=== PATIENT | female | born 1985 | race American Indian/Alaskan Native ===

== ENCOUNTER 2017-10-26 15:37 | Outpatient (CLI) | payer OTHER ==
[2017-10-26] MEDS ORDERED: LACTATED RINGERS 500 ML IV ONE (16:10)
[2017-10-26 17:03] VITALS: BP 98/61
--- NOTE | 2017-10-27 10:00 | Ultrasound Report ---
ULTRASOUND OB LIMITED History: Premature rupture of membranes Technique: Transabdominal ultrasound with Doppler interrogation. Gestation: Single Position: Cephalic Amniotic Fluid: Normal ANNA = 18.7 cm Heart Rate: 140 BPM
== END 2017-10-26 18:14 | disposition home or self-care (01) ==
LOC: TRG 15:37
PROVIDERS: ATTEND Obstetrics & Gynecology
DX: O47.02 False labor before 37 completed weeks of gestation, second trimester (principal); Z3A.27 27 weeks gestation of pregnancy
CPT/HCPCS: 59025; 76815

== ENCOUNTER 2017-12-13 21:52 | Outpatient (CLI) | payer OTHER ==
[2017-12-14 00:53] VITALS: BP 128/78
== END 2017-12-14 01:00 | disposition other institution (70) ==
LOC: TRG 21:52
PROVIDERS: ATTEND Obstetrics & Gynecology
DX: O26.893 Other specified pregnancy related conditions, third trimester (principal); R00.2 Palpitations; Z3A.33 33 weeks gestation of pregnancy
CPT/HCPCS: 59025

== ENCOUNTER 2017-12-14 01:19 | Emergency (ER) | payer OTHER ==
[2017-12-14 02:09] VITALS: BP 112/77
--- NOTE | 2017-12-14 03:06 | Emergency Department Report ---
ED General Adult HPI - General Chief complaint: Arrhythmia/Palpitations Stated complaint: ACCLERATED HEART BEAT Time Seen by Provider: 12/14/17 03:00 Source: patient Mode of arrival: Ambulatory Limitations: No Limitations - History of Present Illness Initial comments: 33 week G2, female, is referred to the emergency room for evaluation of palpitations, after being evaluated and labeled and delivery for several hours for monitoring. monitoring was normal, but patient's primary concern was that she had been having a sensation of palpable heartbeat, which felt like it was going fast. This was her initial presentation , but she felt that the staff were not pain attention to her primary concern, and were concern about stability of fetus, which was confirmed. After that, when she complained of persistence of the symptoms of palpation, which was worsened by laying flat for the monitoring, she was sent down for EKG in the emergency department, but apparently also for emergency department evaluation. Since arrival here, she has been stable, and sensation to have subsided. Patient describes symptoms of palpitation primarily as a racing heartbeat, with a sensation of being able to feel the heartbeat in the upper anterior portion of her central chest. She reports no chest pain, has no shortness of breath, no fever chills or diaphoresis, no cough no congestion, no sputum production. She does have some shortness of breath with significant exertion, or going up and down stairs, but this has been developing gradually with increasing size of the fetus. She is also aware of needing to lay on her left side when she has symptoms of discomfort in her abdomen, and this has helped somewhat, particularly this evening, to help decrease in sensation of her palpitations. At time of my evaluation, patient is in no acute distress, has no complaint of symptoms at this time. Patient next obstetrical appointment is in 3 days. - Related Data Home Medications Medication Instructions Recorded Confirmed Last Taken Acyclovir 10/26/17 Unknown Allergies Allergy/AdvReac Type Severity Reaction Status Date / Time No Known Allergies Allergy Verified 12/14/17 02:04 ED Review of Systems ROS: Stated complaint: ACCLERATED HEART BEAT Other details as noted in HPI Constitutional: denies: chills, fever ENT: denies: ear pain, throat pain Respiratory: SOB with exertion (occasionally). denies: cough, orthopnea Cardiovascular: as per HPI, palpitations. denies: chest pain Endocrine: no symptoms reported Gastrointestinal: denies: abdominal pain, nausea, diarrhea Genitourinary: denies: urgency, dysuria, frequency Musculoskeletal: denies: back pain Skin: denies: rash, lesions, change in color Neurological: denies: headache, weakness, paresthesias Psychiatric: denies: anxiety, depression Hematological/Lymphatic: denies: easy bleeding, easy bruising ED Past Medical Hx - Past Medical History Hx Hypertension: No Hx Diabetes: No Hx Deep Vein Thrombosis: No Hx Renal Disease: No Hx Sickle Cell Disease: No Hx Seizures: No Hx Asthma: No Hx HIV: No - Surgical History Additional Surgical History: c- section x1 - Social History Smoking Status: Never Smoker Substance Use Type: Alcohol - Medications Home Medications: Home Medications Medication Instructions Recorded Confirmed Last Taken Type Acyclovir 10/26/17 Unknown History ED Physical Exam - General Limitations: No Limitations General appearance: alert, in no apparent distress - Head Head exam: Present: atraumatic, normocephalic - Eye Eye exam: Present: PERRL - ENT ENT exam: Present: normal exam, mucous membranes moist - Neck Neck exam: Present: normal inspection, full ROM. Absent: tenderness - Respiratory Respiratory exam: Present: normal lung sounds bilaterally. Absent: respiratory distress, wheezes, rales, rhonchi, chest wall tenderness - Cardiovascular Cardiovascular Exam: Present: regular rate, normal heart sounds. Absent: systolic murmur, diastolic murmur, rubs, gallop, JVD, S3, S4 - GI/Abdominal GI/Abdominal exam: Present: soft, normal bowel sounds, other (gravid). Absent: tenderness, guarding - Rectal Rectal exam: Present: deferred - Extremities Exam Extremities exam: Present: normal inspection, full ROM. Absent: pedal edema - Back Exam Back exam: Present: normal inspection. Absent: tenderness, CVA tenderness (R), CVA tenderness (L) - Neurological Exam Neurological exam: Present: alert, oriented X3, CN II-XII intact. Absent: motor sensory deficit - Psychiatric Psychiatric exam: Present: normal affect, normal mood - Skin Skin exam: Present: warm, dry, intact ED Course Vital Signs 12/14/17 12/14/17 02:05 02:42 Temperature 36.9 C Pulse Rate 97 H Respiratory 16 20 Rate Blood Pressure 112/77 O2 Sat by Pulse 100 Oximetry ED Medical Decision Making - EKG Data -: EKG Interpreted by Me EKG shows normal: sinus rhythm (96 bpm), axis (QRS axis 41), intervals (normal QT interval, 430 ms corrected), QRS complexes, ST-T waves - EKG Data When compared to previous EKG there are: previous EKG unavailable - Medical Decision Making This third trimester gravid female, presents with symptoms of palpitations, with increased awareness of heartbeat, and sense of heartbeat racing. She has had stable observation, but she comes here for emergency evaluation, primarily for EKG, which is entirely normal. Her symptoms are most compatible with combined effect of increasing size of the fetus, with secondary compression of the lungs, and also some secondary compression likely of the inferior vena cava, with decreased venous return, and secondary compensatory tachycardia. Examination today is normal, and EKG is normal, and patient is asymptomatic at this time, and I believe no additional evaluation is necessary other than reassurance. I see no findings to give a cause for worry about acute pulmonary process, or acute cardiac process. Patient was reassured, may return to her prior activities, and she has a follow-up in 3 days with her physical medicine specialist, and should follow with symptoms at that time. Critical Care Time: No Critical care attestation.: If time is entered above; I have spent that time in minutes in the direct care of this critically ill patient, excluding procedure time. ED Disposition Clinical Impression: Heart palpitations Qualifiers: Weeks of gestation: 33 weeks Qualified Code(s): Z3A.33 - 33 weeks gestation of Disposition: DC-01 TO HOME OR SELFCARE Is pt being admited?: No Does the pt Need Aspirin: No Condition: Stable Instructions: Palpitations (ED) Additional Instructions: We have examined here today for symptoms of palpitations, and your third trimester of . Evaluation today is normal, with normal physical examination, and stable , and EKG is also normal as well. We believe that her symptoms are a combination of increased work effort that comes with progression of , in conjunction with decreased venous blood flow through the epidermis result of pressure brought the baby, as well as compression on the lungs, with decreased ability to expand lungs, producing extra work requirements on the heart, that causes the heartbeat to increase. This generally subsides when she rests, and can be also improved when you lay on her left side to decreased compression on the blood flow to the heart. There are no other findings suggestive of any more significant problems, and we believe that she needed no additional measures, but since you're having a repeat examination in a couple of days, we recommend that you discuss symptoms with your doctor at her recheck this coming week. Return anytime to the emergency department for repeat examination if he feel any worsening symptoms or new symptoms that are worrisome to you. Referrals: PRIMARY CARE, [Primary Care Provider] - 3-5 Days Time of Disposition: 03:13
== END 2017-12-14 03:50 | disposition home or self-care (01) ==
LOC: ED 01:19
DX: O26.893 Other specified pregnancy related conditions, third trimester (principal); R00.2 Palpitations; Z3A.33 33 weeks gestation of pregnancy
CPT/HCPCS: 93005; 93010

== ENCOUNTER 2018-01-11 17:50 | Outpatient (CLI) | payer OTHER ==
[2018-01-11 18:56] VITALS: BP 115/67
== END 2018-01-11 21:15 | disposition home or self-care (01) ==
LOC: TRG 17:50
PROVIDERS: ATTEND Obstetrics & Gynecology
DX: O47.03 False labor before 37 completed weeks of gestation, third trimester (principal); Z3A.37 37 weeks gestation of pregnancy
CPT/HCPCS: 59025

== ENCOUNTER 2018-01-23 09:44 | Inpatient (IN) | payer OTHER ==
--- NOTE | 2018-01-22 17:48 | History and Physical Report ---
History of Present Illness Date of examination: 01/22/18 Chief complaint: Scheduled section History of present illness: Pt is a 32 year old -Turkish female ALIVIA 01/30/18 at 39w0d who presents for scheduled section secondary to previous x 1. She reports irregular contractions but denies vaginal bleeding or leakage of fluid. She has had care at [facility] since 5 wks complicated by previous , h/o hemorrhage with blood transfusion, genital herpes, alpha thalassemia trait, migraines, palpitations since November 2017 s/p Cardiology referral and Echocardiogram and GBS positive status. Past History Past Medical History: no pertinent history Past Surgical History: section (2011) CARDIOVASCULAR OR NURSE History: herpes Family/Genetic History: heart disease, hypertension Social history: - Obstetrical History Expected Date of Delivery: 01/30/18 Actual Gestation: 38 Week(s) 6 Day(s) : 2 Para: 1 Hx # Term Pregnancies: 1 Number of Pregnancies: 0 Spontaneous Abortions: 0 Induced : 0 Number of Living Children: 1 Medications and Allergies Allergies Allergy/AdvReac Type Severity Reaction Status Date / Time No Known Allergies Allergy Verified 12/14/17 02:04 Home Medications Medication Instructions Recorded Confirmed Last Taken Type Acyclovir 10/26/17 Unknown History Active Meds: Active Medications Citric Acid/Sodium Citrate (Bicitra) 30 ml PO ONCE ONE Stop: 01/23/18 09:01 Famotidine (Pepcid) 20 mg IV ONCE ONE Stop: 01/23/18 09:01 Cefazolin Sodium (Ancef/Sterile Water 2 Gm/20 Ml) 2 gm in 20 mls @ 80 mls/hr IV PREOP NR; Protocol Lactated Ringer's (Lactated Ringers) 1,000 mls @ 2,250 mls/hr IV PREOP KARISSA Stop: 01/24/18 09:27 Oxytocin/Sodium Chloride (Pitocin/Ns 20 Unit/1000ml Drip) 20 units in 1,000 mls @ 0 mls/hr IV TITR KARISSA Metoclopramide HCl (Reglan) 10 mg IV ONCE ONE Stop: 01/23/18 09:01 Review of Systems All systems: negative - Physical Exam Breasts: Positive: deferred Cardiovascular: Regular rate Lungs: Positive: Clear to auscultation Abdomen: Positive: soft (gravid ) Uterus: Positive: enlarged (gravid ) Extremities: Positive: normal - Obstetrical FHR: auscultation normal Uterine Contraction Monitor Mode: External Uterine Contraction Pattern: Absent Uterine Tone Measurement Phase: Resting Results All other labs normal. Assessment and Plan A: IUP at 39w0d Previous x 1 H/o of hemorrhage requiring blood transfusion Palpitation s/p Echo and Cardiology Referral Migraines Genital Herpes Alpha Thalassemia Trait GBS Positive P: Proceed with repeat section and other indicated procedures. Ensure uterotonics are readily available.
[~2018-01-23 09:44] MED LIST: LACTATED RINGERS 1,000 ML IV SCH
[2018-01-23] MEDS ORDERED: PEPCID IV NR (10:30)
[2018-01-23] MEDS ORDERED: BICITRA PO NR (10:30)
[2018-01-23] MEDS ORDERED: REGLAN IV NR (10:30)
[2018-01-23] MEDS ORDERED: PITOCin/NS 20 UNIT/1000ML DRIP 20 UNITS/1,000 ML BAG IV SCH ×2 (10:30→15:21)
[2018-01-23] MEDS ORDERED: ANCEF/STERILE WATER 2 GM/20 ML 2 GM/20 ML SYRINGE IV NR (10:30)
[2018-01-23] MEDS ORDERED: ZOFRAN IV PRN ×2 (10:50→15:21)
[2018-01-23] MEDS ORDERED: PHENERGAN PO PRN (10:50)
[2018-01-23] MEDS ORDERED: NARCAN 0.4 MG/1 ML IV PRN ×2 (10:50→15:21)
[2018-01-23] MEDS ORDERED: DILAUDID IV PRN (10:50)
[2018-01-23] MEDS ORDERED: PHENERGAN PR PRN (10:50)
[2018-01-23] MEDS ORDERED: BENADRYL IV PRN (10:50)
--- NOTE | 2018-01-23 10:50 | Anesthesia Consultation ---
Anesthesia Consult and Med Hx Date of service: 01/23/18 - Airway Anesthetic Teeth Evaluation: Good ROM Head & Neck: Adequate Mental/Hyoid Distance: Adequate Mallampati Class: Class II Intubation Access Assessment: Probably Good - Pre-Operative Health Status ASA Pre-Surgery Classification: ASA2 Proposed Anesthetic Plan: Epidural, Spinal - Pulmonary Hx Asthma: No - Cardiovascular System Hx Hypertension: No - Central Nervous System Hx Seizures: No Hx Psychiatric Problems: No - Endocrine Hx Renal Disease: No Hx Hypothyroidism: No Hx Hyperthyroidism: No - Hematic Hx Anemia: No Hx Sickle Cell Disease: No - Other Systems Hx Alcohol Use: No - Additional Comments Anesthesia Medical History Comments: genital herpes
--- NOTE | 2018-01-23 10:52 | Anesthesia Day of Surgery ---
Anesthesia Day of Surgery - Day of Surgery Patient Examined: Yes Patient H&P Reviewed: Yes Patient is NPO: Yes
[2018-01-23] MEDS ORDERED: SODIUM CHLORIDE FLUSH SYRINGE 10 ML IV SCH ×2 (11:00→15:21)
[2018-01-23 11:17] LABS: Basophils # (Auto) 0.1 K/mm3 (0.0-0.1); Basophils % (Auto) 0.8 % (0.0-1.8); Eosinophils % (Auto) 0.4 % (0.0-4.3); Hemoglobin 10.3 gm/dl (10.1-14.3); Lymphocytes # (Auto) 1.5 K/mm3 (1.2-5.4); Lymphocytes % (Auto) 16.3 % (13.4-35.0); Mean Corpuscular HGB Conc 31 % (30-34); Mean Corpuscular Volume 74 fl (79-97); Monocytes # (Auto) 0.8 K/mm3 (0.0-0.8); Monocytes % (Auto) 8.6 % (0.0-7.3); Platelet Count 262 K/mm3 (140-440); Red Blood Count 4.45 M/mm3 (3.65-5.03); Red Cell Distribution Width 16.2 % (13.2-15.2)
[2018-01-23 11:18] LABS: Mean Corpuscular Hemoglobin 23 pg (28-32)
[2018-01-23] MEDS ORDERED: METHERGINE IM ONE ×2 (12:10)
[2018-01-23] MEDS ORDERED: ANCEF/STERILE WATER 2 GM/20 ML IV ONE (12:12)
[2018-01-23] MEDS ORDERED: NACL 0.9% IR ONE (12:26)
[2018-01-23] MEDS ORDERED: WATER FOR IRRIG STERILE IR ONE (12:26)
[2018-01-23] MEDS ORDERED: NEO SYNEPHRINE/NS Syringe(OR USE) IV ONE (12:31)
[2018-01-23] MEDS ORDERED: ASTRAMORPH PF 10MG/10ML ONE (12:55)
[2018-01-23] MEDS ORDERED: XYLOCAINE MPF 2% ONE (13:00)
--- NOTE | 2018-01-23 13:26 | Procedure Note ---
OB Delivery Note - Delivery Date of Delivery: 01/23/18 Surgeon: SUNNY WIGGINS Estimated blood loss: other (800 mL) - Section Preop diagnosis: repeat Postop diagnosis: same section procedure: section, repeat low transverse Disposition: PACU Complications: uterine atony - Infant A at 1 minute: 8 at 5 minutes: 9 Infant Gender: Female (3312g (7lb 5oz) @ 1243pm)
--- NOTE | 2018-01-23 13:33 | Operative Report ---
Operative Report Operative Report: Date of procedure: January 23, 2018 Preoperative diagnosis: 1) IUP at 39w0d 2) Previous x 1 Postoperative diagnosis: Same 3) Intrabdominal adhesions Procedure: 1) Repeat low transverse section 2) Lysis of Adhesions Surgeon: Odalys Guthrie M.D. Anesthesia: Spinal-Epidural Findings: 1) Viable female , Apgars 8 and 9, weight 3312g, (7 lb 5 oz) in cephalic presentation 2) Normal-appearing uterus ovaries and tubes 3) Dense adhesions of the parietal peritoneum to the lower uterine segment Estimated blood loss: 800 mL IV fluids: 1100 mL Urine output: 250 mL, clear at the end of the procedure Drains: Kern to gravity Specimens: None. Complications: None. Counts correct x 3 Medications: Methergine 0.2 mg IM Disposition: Stable to PACU Indication for procedure: Pt is a 32 year old at 39w0d with a h/o previous x 1 who presents for scheduled repeat . Operation in detail: After the risks, benefits, alternatives and complications were explained to the patient she gave informed consent for the procedure. She was subsequently taken to the operating room where spinal-epidural anesthesia was noted to be adequate. She was subsequently placed in the dorsal supine position with leftward tilt and prepped and draped in a normal sterile fashion. heart tones were noted to be in the 130s prior to incision. A timeout was performed. A Pfannenstiel skin incision was made with the knife and carried down to the layer of the fascia with the Bovie. The fascia was incised in the midline and the fascial incision was extended bilaterally with the Bovie. Attention was then turned to the superior aspect of the incision which was grasped with two Kochers, tented up, and dissected off the rectus muscles. Attention was then turned to the inferior aspect of the incision which was grasped with two Kochers , tented up and dissected off the rectus muscles. The rectus muscles were then in the midline and partially transected for visualization. The peritoneum was then entered sharply between two Allis clamps. Fifteen minutes was then spent in lysis of adhesions of the parietal peritoneum to the lower uterine segment. The peritoneal incision was then extended with good visualization of the bladder. The peritoneal incision was then stretched. An Mandeep self-retaining retractor was placed for visualization. The bladder blade was placed. The vesicouterine peritoneum was grasped with smooth pickups and incised with Metzenbaum scissors. Metzenbaum scissors were used to extend the incision bilaterally. The bladder flap was then created digitally and the bladder blade was replaced. A transverse incision was made in the lower uterine segment with a knife and extended bilaterally with the bandage scissors. The head was delivered without difficulty followed by shoulders and body. was bulb suctioned at delivery. The cord was clamped and cut and the was handed to NICU staff in attendance. Cord blood was collected. The placenta was then delivered manually. The uterus was then exteriorized and cleared of all clots and debris. The uterus was noted to be atonic desite pitocin infusion. Methergine 0.2 mg IM was administered with improvement in uterine tone. The hysterotomy was then reapproximated with 0 Vicryl in a running locked fashion. A second layer of the same suture was used in imbricating fashion. A figure of eight of 2-0 Vicryl was used to obtain additional hemostasis. The hysterotomy was inspected and hemostasis was noted. The Mandeep self-retaining retractor was removed. The gutters were irrigated and cleared of all clots and debris. The hysterotomy was again inspected and noted to be hemostatic. Surgicel was placed over the hysterotomy. Interceed was placed over the anterior surface of the uterus. The peritoneum was reapproximated with 2-0 Vicryl in a running fashion incorporating the rectus muscles. The fascia was reapproximated with 0 Vicryl in a running fashion. The subcutaneous tissue was reapproximated with 3-0 Vicryl in a running fashion. The skin was reapproximated with 4-0 Vicryl in a subcuticular fashion. The incision was then covered with steri strips and a pressure dressing. The procedure was then ended. The patient tolerated the procedure well and was taken to the PACU in stable condition. All instrument, lap, and needle counts were correct 3.
[2018-01-23] MEDS ORDERED: TUCKS PAD TP PRN (15:21)
[2018-01-23] MEDS ORDERED: MYLICON PO PRN (15:21)
[2018-01-23] MEDS ORDERED: MOTRIN PO PRN (15:21)
[2018-01-23] MEDS ORDERED: LANSINOH TP PRN (15:21)
[2018-01-23] MEDS: TORADOL IV PRN (15:30)
[2018-01-23] MEDS ORDERED: D5LR 1,000 ML IV SCH (16:21)
[2018-01-23] MEDS: ANCEF/NS 1 GM/50 ML 1 GM/50 ML BAG IV SCH (22:00)
[2018-01-23] MEDS: MILK OF MAGNESIA PO SCH (22:00)
[2018-01-24] MEDS: TORADOL IV PRN (01:00)
[2018-01-24 01:15] LABS: Hematocrit 25.8 % (30.3-42.9); Hemoglobin 8.4 gm/dl (10.1-14.3)
[2018-01-24] MEDS: PERCOCET 5/325 PO PRN ×3 (05:15→22:53)
[2018-01-24] MEDS: MILK OF MAGNESIA PO SCH ×2 (05:15→12:20)
[2018-01-24] MEDS ORDERED: BOOSTRIX IM ONE (06:00)
[2018-01-24] MEDS: ANCEF/NS 1 GM/50 ML 1 GM/50 ML BAG IV SCH (06:30)
[2018-01-24] MEDS ORDERED: FEOSOL PO SCH (10:00)
--- NOTE | 2018-01-24 10:15 | Query-Anemia ---
Jeff Mcelroy Date:__01/24/18 Honeycomb Blanket Maker/CDS:__olvin Phone#:_[phone] Exercise your independent professional judgment when responding to this query. Questions asked do not imply a particular answer is desired or expected. We greatly appreciate your clarification on this issue. Clinical Documentation States: Pt is a 32 year old -Armenian female ALIVIA 01/30/[birth year] at 39w0d who presents for scheduled section secondary to previous x 1. Preoperative diagnosis: 1) IUP at 39w0d 2) Previous x 1 Postoperative diagnosis: Same 3) Intrabdominal adhesions Procedure: 1) Repeat low transverse section 2) Lysis of Adhesions Estimated blood loss: 800 mL Clinical Findings Show: 01/23/18 01/24/18 Hb 10.3 8.4 Hct 33 25.8 Etiology: [X ] Anemia due to acute blood loss [ ] Anemia due to chronic blood loss [ ] Anemia secondary to ESRD [ ] Anemia secondary to neoplastic disease [ ] Iron deficiency anemia due to malabsorption [ ] GI Bleed from: [ ] Anemia of chronic disease ,Other: [ ] Precipitous Drop in Hemoglobin [ ] Precipitous Drop in Hematocrit [ ] Other: [ ] Unable to determine [ ] Comment/Explanation: Present on Admission: [ ] Yes (Y) [ ] Clinically undeterminable (W) [X ] No (N) Please also document response in your Progress Notes and/or Discharge Summary and indicate if the condition was present on admission. LEENA
[2018-01-24] MEDS ORDERED: M-M-R II VACCINE SUB-Q ONE (13:35)
[2018-01-24] MEDS ORDERED: DULCOLAX PR PRN (16:00)
[2018-01-24] MEDS ORDERED: DULCOLAX PR ONE (16:02)
[2018-01-24] MEDS ORDERED: CITRATE OF MAGNESIA PO PRN (17:18)
--- NOTE | 2018-01-24 17:21 | Progress Note ---
Assessment and Plan A: POD#1 s/p repeat at term Delayed return of bowel function Anemia- currently asymptomatic P: Routine postop care Hold diet at clears until flatus Ambulate Monitor for symptomatic anemia Subjective - Subjective Date of service: 01/24/18 Principal diagnosis: s/p repeat at term Interval history: Pt not yet passing flatus. No complaints otherwise. Patient reports: appetite normal, voiding normally, pain well controlled, ambulating normally, no flatus, no bowel movement, no nauseated : doing well Objective - Vital Signs Latest vital signs: Vital Signs Temp Pulse Resp BP BP Pulse Ox 01/24/18 11:22 98.4 F 93 H 20 127/87 100 01/24/18 08:25 98.4 F 83 20 111/79 100 01/24/18 04:00 98.6 F 70 18 121/69 01/24/18 00:00 98.6 F 77 16 123/72 01/23/18 20:00 98.6 F 66 18 121/78 Intake and Output 01/24/18 01/24/18 01/24/18 06:59 14:59 22:59 Intake Total 720 Output Total 2100 Balance -2100 720 Intake: Oral 720 Output: Urine 2100 Indwelling Catheter 900 Void 1200 Other: Total, Intake Amount 240 Total, Output Amount 400 # Voids Void 1 1 - Exam Breasts: Present: deferred Cardiovascular: Present: Regular rate Lungs: Present: Clear to auscultation Abdomen: Present: soft, distention (moderate ), abnormal bowel sounds ( hypoactive ) Uterus: Present: fundal height at umbilicus Extremities: Present: normal Incision: Present: dressed - Labs Labs: Abnormal lab results 01/24/18 Range/Units 00:28 Hgb 8.4 L (10.1-14.3) gm/dl Hct 25.8 L D (30.3-42.9) %
[2018-01-25] MEDS: TORADOL IV PRN (02:54)
[2018-01-25] MEDS: PERCOCET 5/325 PO PRN ×2 (02:59→10:38)
[2018-01-25] MEDS: MILK OF MAGNESIA PO SCH ×2 (06:31→12:28)
[2018-01-25 10:08] VITALS: BP 132/96
--- NOTE | 2018-01-25 13:22 | Progress Note ---
Assessment and Plan POD 2 s/p ltcs. Doing well. Patient seen with family in room. She has no complaints.Will plan for discharge on today. Subjective - Subjective Date of service: 01/25/18 Principal diagnosis: s/p repeat at term Patient reports: appetite normal, voiding normally, pain well controlled, flatus , ambulating normally [place]: doing well Objective - Vital Signs Latest vital signs: Vital Signs Temp Pulse Resp BP BP Pulse Ox 01/25/18 09:20 97.6 F 80 18 132/96 01/25/18 00:31 97.7 F 88 20 131/93 100 01/24/18 17:51 97.9 F 108 H 20 120/71 100 Intake and Output 01/24/18 01/25/18 01/25/18 22:59 06:59 14:59 Intake Total 120 240 Balance 120 240 Intake: Oral 120 240 Other: Total, Intake Amount 120 240 # Voids Void 1 - Exam Breasts: Present: deferred Cardiovascular: Present: Regular rate, Normal S1, Normal S2 Lungs: Present: Clear to auscultation, Normal air movement Abdomen: Present: normal appearance, soft Extremities: Present: normal Incision: Present: normal, dry, intact
--- NOTE | 2018-01-25 13:24 | Discharge Summary ---
Providers - Providers Date of Admission: 01/23/18 09:44 Date of discharge: 01/25/18 Attending physician: SARIKA MULLIGAN MD 01/23/18 15:21 Consult to Gas Worker [CONS] Routine Reason For Exam: Primary care physician: SARIKA MULLIGAN MD Hospitalization Reason for admission: section Delivery: Procedure: repeat low transverse Procedure details: see op report Laceration: none Incision: normal, dry, intact complications: none Discharge diagnosis: IUP at term delivered [place] baby: female Hospital course: unremarkable Condition at discharge: Good Disposition: DC-01 TO HOME OR SELFCARE Plan - Discharge Medications Prescriptions: Ferrous Sulfate [Feosol 325 MG tab] 325 mg PO BID #60 tablet Ibuprofen [Motrin] 800 mg PO Q8HR PRN #30 tablet PRN Reason: Pain, Moderate (4-6) oxyCODONE /ACETAMINOPHEN [Percocet 5/325] 1 tab PO Q6HR PRN #40 tablet PRN Reason: Pain - Provider Discharge Summary Activity: routine, no sex for 6 weeks, no heavy lifting 4 weeks, no strenuous exercise Diet: routine Instructions: routine Additional instructions: [] Smoking cessation referral if applicable(refer to patient education folder for contact #) [] Refer to [facility]'s [facility] Booklet Call your doctor immediately for: * Fever > 100.5 * Heavy vaginal bleeding ( >1 pad per hour) * Severe persistent headache * Shortness of breath * Reddened, hot, painful area to leg or breast * Drainage or odor from incision. * Keep incision clean and dry at all times and follow doctor's instructions regarding bathing/showering - Follow up plan Follow up: SARIKA MULLIGAN MD [Primary Care Provider] - 14 Days
== END 2018-01-25 17:15 | disposition home or self-care (01) | DRG 765 ==
LOC: APU 09:44 → OB 15:01
PROVIDERS: ADMIT Obstetrics & Gynecology; ATTEND Obstetrics & Gynecology
PROC: 10D00Z1 Extraction of Products of Conception, Low, Open Approach (ICD-10-PCS; principal; 2018-01-23)
PROC: 0DNW0ZZ Release Peritoneum, Open Approach (ICD-10-PCS; 2018-01-23)
PROC: 3E0234Z Introduction of Serum, Toxoid and Vaccine into Muscle, Percutaneous Approach (ICD-10-PCS; 2018-01-24)
DX: O34.211 Maternal care for low transverse scar from previous cesarean delivery (principal); O99.354 Diseases of the nervous system complicating childbirth; O99.12 Other diseases of the blood and blood-forming organs and certain disorders involving the immune mechanism complicating childbirth; D62 Acute posthemorrhagic anemia; O98.52 Other viral diseases complicating childbirth; D56.3 Thalassemia minor; G43.909 Migraine, unspecified, not intractable, without status migrainosus; Z3A.39 39 weeks gestation of pregnancy; Z37.0 Single live birth; O99.824 Streptococcus B carrier state complicating childbirth; N73.6 Female pelvic peritoneal adhesions (postinfective); Z23 Encounter for immunization; O62.2 Other uterine inertia; O99.02 Anemia complicating childbirth; B00.9 Herpesviral infection, unspecified; O75.89 Other specified complications of labor and delivery
CPT/HCPCS: 36415; 85014; 85018; 85025; 86592; 86850; 86900; 86901; 99211; A6250; G0463; J0690; J1885; J2210; J2274; J2370; J2590; J2765; J7120

== ENCOUNTER 2018-02-06 15:23 | Inpatient (IN) | payer OTHER ==
[2018-02-06] MEDS ORDERED: BENADRYL PO PRN (15:32)
[2018-02-06] MEDS ORDERED: MILK OF MAGNESIA PO PRN (15:32)
[2018-02-06] MEDS ORDERED: PERCOCET 5/325 PO PRN (15:32)
[2018-02-06] MEDS ORDERED: DULCOLAX PR PRN (15:32)
[2018-02-06] MEDS ORDERED: TUCKS PAD TP PRN (15:32)
[2018-02-06] MEDS ORDERED: TYLENOL PO PRN (15:32)
[2018-02-06] MEDS ORDERED: LANSINOH TP PRN (15:32)
[2018-02-06] MEDS ORDERED: ZOFRAN IV PRN (15:32)
[2018-02-06] MEDS ORDERED: PHENERGAN PO PRN (15:32)
[2018-02-06] MEDS ORDERED: PHENERGAN PR PRN (15:32)
--- NOTE | 2018-02-06 15:43 | History and Physical Report ---
History of Present Illness Date of examination: 02/06/18 Date of admission: 02/06/18 Chief complaint: headache History of present illness: This is a 32 yo G 2 P 2 delivered 2 weeks ago via repeat csec. She reports a hx of previous with elevated BP in last but never on any meds. Patient states that she has had a headache for 1 day. She had appt today for PP check. Patient c/o pain at incision but denies sob, no cp. Min to moderate bleeding. No n,v,f, nor chills. Past History Past Medical History: migraines Past Surgical History: section (x2) [employer] History: herpes Family/Genetic History: none Social history: . denies: smoking, alcohol abuse, prescription drug abuse - Obstetrical History : 2 Medications and Allergies Allergies Allergy/AdvReac Type Severity Reaction Status Date / Time No Known Allergies Allergy Verified 12/14/17 02:04 Home Medications Medication Instructions Recorded Confirmed Last Taken Type Acyclovir 1 tab PO DAILY 10/26/17 01/25/18 Unknown History Ferrous Sulfate [Feosol 325 MG tab] 325 mg PO BID #60 tablet 01/24/18 Unknown Rx Ibuprofen [Motrin] 800 mg PO Q8HR PRN #30 tablet 01/24/18 Unknown Rx oxyCODONE /ACETAMINOPHEN [Percocet 1 tab PO Q6HR PRN #40 tablet 01/24/18 Unknown Rx 5/325] Active Meds: Active Medications Acetaminophen (Tylenol) 650 mg PO Q4H PRN PRN Reason: Pain MILD(1-3)/Fever >100.5/DAMON Acetaminophen/Hydrocodone Bitart ([place] 5/325) 2 each PO Q6H PRN PRN Reason: Pain, Moderate (4-6) Bisacodyl (Dulcolax) 10 mg TN BID PRN PRN Reason: Constipation Diphenhydramine HCl (Benadryl) 25 mg PO Q6H PRN PRN Reason: Itching Docusate Sodium (Colace) 100 mg PO BID KARISSA Magnesium Sulfate (Magnesium Sulfate 4gm/100ml) 4 gm in 100 mls @ 25 mls/hr IV ONCE ONE Stop: 02/06/18 19:36 Magnesium Sulfate (Magnesium Sulfate 2gm/50ml) 2 gm in 50 mls @ 100 mls/hr IV ONCE ONE Stop: 02/06/18 16:06 Ibuprofen (Motrin) 600 mg PO Q6H KARISSA Magnesium Hydroxide (Milk Of Magnesia) 30 ml PO HS PRN PRN Reason: Constipation Multi-Ingredient Ointment (Lansinoh) 1 applic TP PRN PRN PRN Reason: Sore Nipples Multivitamins/Iron/Calcium ( Vitamin) 1 each PO QDAY KARISSA Ondansetron HCl (Zofran) 4 mg IV Q8H PRN PRN Reason: Nausea And Vomiting Oxycodone/Acetaminophen (Percocet 5/325) 1 tab PO Q6H PRN PRN Reason: Pain, Moderate (4-6) Promethazine HCl (Phenergan) 25 mg TN Q6H PRN PRN Reason: Nausea And Vomiting Promethazine HCl (Phenergan) 25 mg PO Q6H PRN PRN Reason: Nausea And Vomiting Sodium Chloride (Sodium Chloride Flush Syringe 10 Ml) 10 ml IV PRN NR Witch Y[place]aira/Glycerin (Tucks Pad) 1 each TP PRN PRN PRN Reason: Hemorrhoid/cleansing/soothing Review of Systems All systems: negative Ears, nose, mouth and throat: headache - Physical Exam Breasts: Positive: deferred Cardiovascular: Regular rate, Normal S1 Lungs: Positive: Clear to auscultation, Normal air movement Abdomen: Positive: normal appearance, soft, normal bowel sounds. Negative: distention, tenderness, guarding Genitourinary (Female): Positive: normal external genitalia, normal perenium Vagina: Positive: normal moisture Uterus: Positive: normal size Anus/Rectum: Positive: normal perianal skin Extremities: Positive: normal Deep Tendon Reflex Grade: Normal +2 Results All other labs normal. Assessment and Plan A/P PP pree with headache and elevated BP 148-150/100-120 will start Mag therapy for 24 hrs 4g/26 Mag checks q6hrs pain meds clear liquids implement BP -pending BP checks PIH w/u sent
[2018-02-06] MEDS ORDERED: SODIUM CHLORIDE FLUSH SYRINGE 10 ML IV SCH (16:00)
[2018-02-06 17:22] LABS: Hemoglobin 10.5 gm/dl (10.1-14.3); Mean Corpuscular HGB Conc 31 % (30-34); Mean Corpuscular Volume 74 fl (79-97); Platelet Count 393 K/mm3 (140-440); Red Cell Distribution Width 18.7 % (13.2-15.2)
[2018-02-06 17:35] LABS: Mean Corpuscular Hemoglobin 23 pg (28-32)
[2018-02-06] MEDS ORDERED: MAGNESIUM SULFATE 2GM/50ML 2 GM/50 ML BAG IV ONE (17:37)
[2018-02-06] MEDS ORDERED: MAGNESIUM SULFATE 4GM/100ML 4 GM/100 ML BAG IV ONE (17:37)
[2018-02-06 17:47] LABS: Alanine Aminotransferase 15 units/L (7-56)
[2018-02-06] MEDS ORDERED: MAGNESIUM SULFATE 40GM/1000ML 40 GM/1,000 ML BAG IV SCH (18:00)
[2018-02-06 18:53] LABS: Bacteria,Urine 1+ /HPF (Negative); Bilirubin,Urine NEG (Negative); Blood,Urine LG (Negative); Color,Urine Straw (Yellow); Mucus,Urine FEW /HPF; Protein,Urine <15 mg/dL mg/dL (Negative); Urobilinogen,Urine < 2.0 mg/dL (<2.0)
[2018-02-06] MEDS ORDERED: LACTATED RINGERS 1,000 ML ONE (19:06)
[2018-02-06] MEDS: MOTRIN PO SCH (19:30)
[2018-02-06] MEDS: COLACE PO SCH (21:27)
[2018-02-07] MEDS ORDERED: LACTATED RINGERS 1,000 ML IV SCH (06:00)
[2018-02-07] MEDS: MOTRIN PO SCH ×4 (06:11→18:26)
--- NOTE | 2018-02-07 08:06 | Progress Note ---
Assessment and Plan A/P HD #2 PP pree with headache and elevated BP 148-150/100-120 mag level 6.8 decreased rate to 1gm/hr Mag checks q6hrs UTI _ large blood, +bacteria ( rocephin started) will need to go home on macrobid continue present mgt mag off in 24hrs BP stabilized Subjective - Subjective Date of service: 02/07/18 Principal diagnosis: Preeclampsia Interval history: This is a 32 yo G 2 P 2 delivered 2 weeks ago via repeat csec. She reports a hx of previous with elevated BP in last but never on any meds. Patient states that she has had a headache for 1 day. She had appt today for PP check. Patient c/o pain at incision but denies sob, no cp. Min to moderate bleeding. No n,v,f, nor chills. Patient reports: appetite normal, voiding normally, pain well controlled, flatus , ambulating normally Objective - Vital Signs Latest vital signs: Vital Signs Temp Pulse Resp BP BP Pulse Ox 02/07/18 06:13 77 114/85 02/07/18 04:00 98.1 F 98 H 20 121/82 02/07/18 02:11 97.6 F 76 16 119/77 02/07/18 00:16 98.3 F 83 16 117/80 02/06/18 22:02 97.5 F L 89 16 144/83 02/06/18 19:55 94 H 133/93 02/06/18 19:47 98 H 130/88 02/06/18 19:40 97 H 140/91 02/06/18 19:30 96 H 131/86 02/06/18 19:10 86 139/92 02/06/18 16:30 98.7 F 85 20 143/93 100 Intake and Output 02/06/18 02/07/18 02/07/18 23:59 07:59 15:59 Intake Total 320 450 Output Total 800 1900 Balance -480 -1450 Intake: Intake, Free Water 320 450 Output: Urine 800 1900 Void 800 1900 Other: Total, Output Amount 800 1000 Voiding Method Toilet # Voids Void 2 2 Weight 54.431 kg - Exam Breasts: Present: normal Cardiovascular: Present: Regular rate, Normal S1 Lungs: Present: Clear to auscultation, Normal air movement Abdomen: Present: normal appearance, soft, normal bowel sounds. Absent: distention, tenderness, guarding Vulva: both: normal Uterus: Present: normal, firm, fundal height below umbilicus. Absent: bogginess , tenderness Extremities: Present: normal Deep Tendon Reflex Grade: Normal +2 - Labs Labs: Abnormal lab results 02/06/18 02/06/18 02/06/18 Range/Units 16:42 16:42 17:10 MCV 74 L (79-97) fl MCH 23 L (28-32) pg RDW 18.7 H (13.2-15.2) % Creatinine 0.5 L (0.7-1.2) mg/dL Magnesium (1.7-2.3) mg/dL Lactate Dehydrogenase 271 H (91-180) units/L Urine WBC (Auto) 12.0 H (0.0-6.0) /HPF 02/07/18 Range/Units 00:57 MCV (79-97) fl MCH (28-32) pg RDW (13.2-15.2) % Creatinine (0.7-1.2) mg/dL Magnesium 6.80 H (1.7-2.3) mg/dL Lactate Dehydrogenase (91-180) units/L Urine WBC (Auto) (0.0-6.0) /HPF
[2018-02-07 08:10] LABS: Hematocrit 35.2 % (30.3-42.9); Hemoglobin 11.1 gm/dl (10.1-14.3)
[2018-02-07] MEDS ORDERED: PERCOCET 5/325 PO PRN (10:30)
[2018-02-07] MEDS: PRENATAL VITAMIN PO SCH (10:30)
[2018-02-07] MEDS: COLACE PO SCH ×2 (10:30→21:01)
[2018-02-07] MEDS: ROCEPHIN/NS 1 GM/50 ML 1 GM/50 ML BAG IV SCH (10:48)
[2018-02-07] MEDS: NORCO 5/325 PO PRN ×3 (13:55→21:00)
[2018-02-08] MEDS: MOTRIN PO SCH ×2 (00:59→06:32)
[2018-02-08] MEDS: ROCEPHIN/NS 1 GM/50 ML 1 GM/50 ML BAG IV SCH (10:36)
[2018-02-08] MEDS: PRENATAL VITAMIN PO SCH (10:45)
[2018-02-08] MEDS: COLACE PO SCH (10:45)
--- NOTE | 2018-02-08 13:23 | Progress Note ---
Assessment and Plan - Patient Problems (1) Preeclampsia in period Current Visit: Yes Status: Acute Plan to address problem: patient doing well discharge home Subjective - Subjective Principal diagnosis: Preeclampsia Interval history: Patient reports feeling better today. She has completed her magnesium tx. Blood pressures generally normotensive. Patient reports: appetite normal, voiding normally, pain well controlled Objective - Vital Signs Latest vital signs: Vital Signs Temp Pulse Resp Resp BP 02/08/18 04:14 98.2 F 84 18 132/95 02/08/18 00:59 18 02/08/18 00:14 98.2 F 77 18 133/87 02/07/18 22:16 78 147/100 02/07/18 21:00 18 18 02/07/18 19:30 92 H 18 134/92 02/07/18 15:16 98.8 F 97 H 18 137/90 Intake and Output 02/07/18 02/08/18 02/08/18 22:59 06:59 14:59 Intake Total 760 240 Output Total 2900 400 Balance -2140 -160 Intake: Oral 760 Intake, Free Water 240 Output: Urine 2900 400 Void 2900 400 Other: Total, Intake Amount 200 Total, Output Amount 500 400 Voiding Method Toilet # Voids Void 2 - Labs Labs: Abnormal lab results 02/07/18 Range/Units 13:17 Magnesium 4.70 H (1.7-2.3) mg/dL
--- NOTE | 2018-02-08 13:25 | Discharge Summary ---
Providers - Providers Date of Admission: 02/06/18 16:15 Date of discharge: 02/08/18 Attending physician: SARIKA MULLIGAN MD Primary care physician: SARIKA MULLIGAN MD Hospitalization Reason for admission: other (elevated blood pressures) Discharge diagnosis: other ( preeclampsia) Hospital course: Patient admitted for magnesium therapy and blood pressure monitoring. Condition at discharge: Good Disposition: DC-01 TO HOME OR SELFCARE - Discharge Diagnoses (1) Preeclampsia in period Status: Acute Plan - Discharge Medications Prescriptions: Nitrofurantoin Monohyd/M-Cryst [Macrobid 100 mg Capsule] 100 mg PO BID #14 capsule oxyCODONE /ACETAMINOPHEN [Percocet 5/325] 1 tab PO Q6HR PRN #20 tablet PRN Reason: Pain - Provider Discharge Summary Activity: no sex for 6 weeks, no heavy lifting 4 weeks, no strenuous exercise Diet: routine Instructions: routine Additional instructions: [] Smoking cessation referral if applicable(refer to patient education folder for contact #) [] Refer to [facility] Book[facility] Call your doctor immediately for: * Fever > 100.5 * Heavy vaginal bleeding ( >1 pad per hour) * Severe persistent headache * Shortness of breath * Reddened, hot, painful area to leg or breast * Drainage or odor from incision. * Keep incision clean and dry at all times and follow doctor's instructions regarding bathing/showering schedule followup in one week - Follow up plan
[2018-02-08 14:08] VITALS: BP 130/84
== END 2018-02-08 15:30 | disposition home or self-care (01) | DRG 776 ==
LOC: 3A 15:23 → UNDOADMIN 15:23 → OB 16:15
PROVIDERS: ADMIT Obstetrics & Gynecology; ATTEND Obstetrics & Gynecology
DX: O14.95 Unspecified pre-eclampsia, complicating the puerperium (principal); O99.355 Diseases of the nervous system complicating the puerperium; O98.33 Other infections with a predominantly sexual mode of transmission complicating the puerperium; G43.909 Migraine, unspecified, not intractable, without status migrainosus; O86.20 Urinary tract infection following delivery, unspecified; A60.00 Herpesviral infection of urogenital system, unspecified
CPT/HCPCS: 36415; 81001; 82565; 83615; 83735; 84450; 84460; 84550; 85014; 85018; 85027; J0696; J3475; J7120